=== PATIENT | female | born 1950 | race Caucasian/White ===

== ENCOUNTER 2023-07-24 17:48 | Emergency (ER) | payer MEDICARE, OTHER, SELFPAY ==
--- NOTE | ~2023-07-24 | XR_ITS ---
EXAMINATION: XR chest 2V Exam Date/Time: 07/24/2023 18:40 TABLEAU ADMINISTRATOR HISTORY: COUGH, CONGESTION, SOB, WHEEZING Comparison: 08/21/2017. RESULT: Lines, tubes, and devices: None. Lungs and pleura: Clear. Cardiomediastinal silhouette: Stable. Other: No acute osseous or upper abdominal finding. IMPRESSION: No acute cardiopulmonary process. Reviewed, dictated and finalized at location K. EAU ADMINISTRATOR
[2023-07-24 18:00] VITALS: BP 143/54; PULSE 57; RESP 16; TEMP 36.5; O2SAT 96
--- NOTE | 2023-07-24 19:09 | ED.URI ---
HPI - URI/Sore Throat General Chief Complaint: Upper Respiratory Infection Stated Complaint: Chest Congestion/Cough Time Seen by Provider: 07/24/23 19:10 Source: patient, RN notes reviewed and old records reviewed Mode of arrival: ambulatory Limitations: no limitations History of Present Illness HPI Narrative: 73-year-old female who presents to [facility] complaints of cough with congestion and some wheezing noted. Patient reports reports that she has had cough for about a month with increased symptoms for the past 4 days with cough now loose at times with expectoration of yellow mucous. Patient reports no known fever, states some dyspnea with exertion at time. She states that cough increases when she is supine and is not sleeping. MD elicited complaint: cough and other (congestion, some shortness of breath) Onset (ago): month(s) (1 with increased symptoms past 4 days) Severity: moderate Able to tolerate fluids by mouth: Yes Treatments prior to arrival: cold medicine Related Data Home Medications Medication Instructions Recorded Confirmed bupropion HCl 300 mg 24 hr tablet, 300 mg PO DAILY 07/24/23 07/24/23 extended release citalopram 20 mg tablet 30 mg PO DAILY 07/24/23 07/24/23 donepezil 10 mg tablet 10 mg PO DAILY 07/24/23 07/24/23 hydralazine 10 mg tablet 10 mg PO BID 07/24/23 07/24/23 memantine 10 mg tablet 10 mg PO BID 07/24/23 07/24/23 metoprolol tartrate 50 mg tablet 50 mg PO BID 07/24/23 07/24/23 omeprazole 20 mg capsule,delayed 20 mg PO DAILY 07/24/23 07/24/23 release simvastatin 20 mg tablet 20 mg PO DAILY 07/24/23 07/24/23 Allergies Allergy/AdvReac Type Severity Reaction Status Date / Time latex Allergy Unknown Unknown Unverified 07/24/23 18:25 Cloth bandaid AdvReac Unknown blisters Uncoded 07/24/23 18:25 Review of Systems Review of Systems: CONSTITUTIONAL: Denies malaise, chills, sweats, or fever. EYES: Denies visual changes, redness, or discharge. ENT: Reports rhinorrhea, congestion,no sinus pain,no otalgia and no sore throat. CARDIOVASCULAR: Denies chest pain, palpitations, or edema. RESPIRATORY: Reports cough.? reports some dyspnea. GASTROINTESTINAL: Denies abdominal pain, nausea, vomiting, diarrhea SKIN: Denies rash or itching. MUSCULOSKELETAL: Denies myalgia. NEUROLOGIC: Denies headache. All systems reviewed & are unremarkable except as noted in HPI and below PMFSH Past Medical History Medical History (Updated 07/25/23 @ 23:41 by Bonita Cronin NP) Anxiety and depression Bronchitis GERD (gastroesophageal reflux disease) Hyperlipidemia Hypertension Surgical History Surgical History (Updated 07/25/23 @ 23:36 by Bonita Cronin NP) H/O total hysterectomy History of tonsillectomy and adenoidectomy Social History Social History (Updated 07/25/23 @ 23:35 by Bonita Cronin NP) Smoking status: Never smoker Alcohol intake: current Alcohol use details: rare Substance use type: does not use Living arrangements: with family Gender identity (if verbalized by the patient): Female Comments At time of signature, agree with nursing past medical, surgical, social and family history. There is no relevant family history pertinent to the presenting complaint Exam Narrative: GENERAL: Well-appearing, well-nourished, and in no acute distress. HEAD: Normocephalic EYES: PERRLA, conjunctivae clear ENT: Nares clear, turbinates edematous and erythematous, clear discharge. Mucous membranes moist. TM pearly marie with dull light reflex bilaterally; no tragal tenderness. Oropharynx erythematous without lesions. Tonsils not present and throat without exudate, no drooling, no hoarseness, no trismus, uvula midline. NECK: Supple. No lymphadenopathy CHEST: decreased with scattered wheezes auscultation, breath sounds equal.positive wheezing, no rhonchi, rales, or stridor. No respiratory distress, speaks in full sentences.cough loose and hacking SAO2 96% on room ai
== END 2023-07-24 19:50 | disposition home or self-care (01) ==
PROVIDERS: Emergency Provider Registered Nurse; PCP Physician Assistant
DX: J40 Bronchitis, not specified as acute or chronic (principal); E78.5 Hyperlipidemia, unspecified; I10 Essential (primary) hypertension; Z79.899 Other long term (current) drug therapy
CPT/HCPCS: 71046; 99203; G0463